=== PATIENT | male | born 1945 | race Caucasian/White ===

== ENCOUNTER → 2018-04-30 | Day surgery (SDC) | payer MEDICARE, OTHER ==
[2018-04-28 16:51] LABS: BASOPHILS % 0.4 % (0.0-1.0); EOSINOPHILS # (AUTO) 0.1 (0.0-0.4); EOSINOPHILS % 0.7 % (0.0-6.0); HEMATOCRIT 40.7 % (38.2-49.6); HEMOGLOBIN 13.5 g/dL (14.0-18.0); LYMPHOCYTES # (AUTO) 1.7 (1.0-3.2); LYMPHOCYTES % 25.1 % (18.0-39.1); MEAN CORPUSCULAR HGB CONC 33.2 g/dL (31-35); MEAN CORPUSCULAR VOLUME 93.6 fL (81-99); MONOCYTES # (AUTO) 0.6 (0.2-0.8); MONOCYTES % 9.3 % (4.4-11.3); NEUTROPHILS # (AUTO) 4.4 (2.1-6.9); NEUTROPHILS % 64.1 % (38.7-80.0); PLATELET COUNT 160 x10e3/uL (140-360); RED BLOOD COUNT 4.35 x10e6/uL (4.3-5.7); RED CELL DISTRIBUTION WIDTH 12.8 % (11.7-14.4)
[2018-04-28 17:09] LABS: BLOOD UREA NITROGEN 14 mg/dL (7-26); BUN/CREATININE RATIO 14 (6-25); CALCIUM 9.7 mg/dL (8.4-10.2); CARBON DIOXIDE 27 mmol/L (22-29); CHLORIDE 108 mmol/L (98-107); EST GLOMERULAR FILTRATION RATE > 60 ML/MIN (60-); GLUCOSE 88 mg/dL (74-118); SODIUM 143 mmol/L (136-145)
--- NOTE | 2018-04-29 07:48 | Diagnostic Imaging Report ---
PROCEDURE:CHEST 2 VIEW COMPARISON:Chest x-ray 06/26/2016. INDICATIONS:PREOP for left foot surgery. FINDINGS: Mild left basilar atelectasis and/or scarring. No pleural effusion or pneumothorax. Cardiomediastinal silhouette is within normal limits. Atherosclerotic calcifications in the aorta. Bony structures are unremarkable. No fractures. No abnormal soft tissue. CONCLUSION: Unremarkable chest x-ray. Dictated by: Huang Campos M.D. on 04/28/2018 at 17:02 Electronically approved by: Huang Campos M.D. on 04/28/2018 at 17:02
[~2018-04-30] MED LIST: AMLODIPINE BESYL5 MG PO; ATORVASTATIN CA40 MG PO; BISOPROLOL FUMAR5 MG PO; BUPIVACAINE HCL 0.5% INJ 30 ML VIAL INJ ONE; CEFAZOLIN SOD 1 GM VIAL ONE; CENTRUM SILVER1 EAC3 PO; CIALIS20 MG PO; DEXAMETHASONE SOD PHOS INJ 4 MG/ML VIAL ONE; DIPHENHYDRAMINE25 M1 PO; EFFIENT10 MG PO; FENTANYL CITRATE/PF 100MCG/2 ML INJ ONE; GLUCOTEN CAPLE1 EACH PO; GLYCOPYRROLATE INJ 1MG/ 5 ML SYR ONE; LIDOCAINE HCL 2% LOCAL INJ 5 ML SDV VIAL INJ ONE; LISINOPRIL-HCT1 EACH PO; LOPERAMIDE2 MG PO; LOVASTATIN20 MG PO; METOPROLOL SUCC50 MG PO; MUPIROCIN 2% OINT 22 GM TUBE ONE; ONDANSETRON HCL INJ 2 MG/ML VIAL ONE; PRILOSEC10 MG PO; PROPOFOL IV EMULSION 10 MG/ML 20 ML VIAL ONE; SEVOFLURANE INHAL SOLN 250 ML PEN BTL ONE; [UNRECOGNIZED DRUG - OTHER] PO
--- OUTSIDE RECORDS SUMMARY | 2018-04-30 05:25 | XMS REPORT ---
Author Author [facility] Address Unknown Phone Unavailable Care Team Providers Care Mobile Home Servicer Name Role Phone Susy WILKINS Unavailable Unavailable Problems This patient has no known problems. Allergies, Adverse Reactions, Alerts This patient has no known allergies or adverse reactions. Medications This patient has no known medications. Results Test Description Test Time Test Comments Text Results Atomic Results Result Comments CHEST 2 VIEWS [place] [id number] [place] [id number] Patient Name: ORALIA ERAZO MR #: [id number] : 1945 Age/Sex: 73/M Req #: [id number] Adm Physician: Ordered by: Susy WILKINS DPM Report #: [id number] Location: OR Room/Bed: Procedure: [id number] DX/CHEST 2 VIEWS Exam Date: 04/28/18 Exam Time: 1630 REPORT STATUS: Signed PROCEDURE: CHEST 2 VIEW COMPARISON: Chest x-ray 06/26/2016. INDICATIONS: PREOP for left foot surgery. FINDINGS: Mild left basilar atelectasis and/or scarring. No pleural effusion or pneumothorax. Cardiomediastinal silhouette is within normal limits. Atherosclerotic calcifications in the aorta. Bony structures are unremarkable. No fractures. No abnormal soft tissue. CONCLUSION: Unremarkable chest x-ray. Dictated by: Oksana Campos M.D. on 04/28/2018 at 17:02 Electronically approved by: Oksana Campos M.D. on 2017 at 17:02 Dictated By: OKSANA CAMPOS MD 01 Transcribed By: VEL on 04/28/181701 COPY TO: Susy WILKINS DPM
--- NOTE | 2018-04-30 07:31 | Operative Report ---
DATE OF PROCEDURE: April 30, 2018 PREOPERATIVE DIAGNOSIS: Left foreign body. POSTOPERATIVE DIAGNOSIS: Left foreign body. PLANNED PROCEDURE: Left excision of foreign body. SURGEON: Dr. Sheri DPM. FUR FINISHER: Jourdan Hdez DPM. ANESTHESIA: General with a postoperative block consisting of 10 mL of 0.5% Marcaine plain. HEMOSTASIS: Pneumatic thigh tourniquet set at 350 mmHg for a total time of approximately 15 minutes. PROCEDURE: The patient was seen and evaluated in the preoperative waiting room. The patient was then brought into the operating room and placed in the supine position. General anesthesia was initiated at this time. A well-padded pneumatic tourniquet was placed about the patient's left thigh. The left foot, ankle and leg was scrubbed, prepped and draped in the usual aseptic manner. The left foot, ankle and leg was exsanguinated with an Esmarch bandage, and the pneumatic thigh tourniquet was inflated to 350 mmHg for a total time of approximately 15 minutes. Attention was directed to the plantar medial aspect of the patient's left foot where a callused area with darker discoloration is noted to the plantar aspect of the 1st metatarsophalangeal joint. Utilizing a #15 blade, a 4 cm linear incision was made directly over this area. It should be noted directly upon incision, a dark foreign body material was noted within the encapsulated hyperkeratosis of the plantar aspect of the 1st metatarsophalangeal joint. This was excised and passed off to the back table. The wound was then explored utilizing a mosquito hemostat medially, laterally, distally, and plantarly, and no metallic or otherwise foreign bodies were noted. The remaining hyperkeratotic encapsulated tissue was excised and passed off to the back table. The wound was then flushed with copious amounts of sterile saline. The skin was reapproximated utilizing simple interrupted sutures with 3-0 nylon. The incision site was then dressed with Adaptic, 4 x 4s, Kerlix, Ezar wrap, and a postop shoe. The patient was transferred to the postoperative recovery unit with vital signs stable and vascular status intact. The patient was monitored there for a short period time before being sent home with the following written and oral instructions: 1. Keep the dressing clean, dry and intact. 2. The patient is to remain nonweightbearing in a postop shoe and to avoid excessive ambulation until being seen in the office. 3. The patient was given the office number and ensured to contact us if any problems should arise. DICTATED By JOURDAN HDEZ DPM Job#: [id number] [place]
== END | disposition home or self-care (01) ==
LOC: OR 05:23
PROVIDERS: ATTEND Podiatrist Foot & Ankle Surgery
DX: M60.272 Foreign body granuloma of soft tissue, not elsewhere classified, left ankle and foot (principal); C61 Malignant neoplasm of prostate; I25.10 Atherosclerotic heart disease of native coronary artery without angina pectoris; I10 Essential (primary) hypertension; K21.9 Gastro-esophageal reflux disease without esophagitis; B15.9 Hepatitis A without hepatic coma; Z88.8 Allergy status to other drugs, medicaments and biological substances; Z01.810 Encounter for preprocedural cardiovascular examination; Z01.812 Encounter for preprocedural laboratory examination; Z01.818 Encounter for other preprocedural examination; Z95.5 Presence of coronary angioplasty implant and graft
CPT/HCPCS: 10120; 36415; 71046; 80048; 85025; 93005; J0690; J1100; J2001; J2405; J3490

== ENCOUNTER → 2021-02-13 | Day surgery (SDC) | payer MEDICARE, OTHER ==
[2021-02-08 12:07] LABS: BASOPHILS % 0.4 % (0.0-1.0); EOSINOPHILS # (AUTO) 0.2 (0.0-0.4); EOSINOPHILS % 3.6 % (0.0-6.0); HEMATOCRIT 42.4 % (38.2-49.6); HEMOGLOBIN 14.1 g/dL (14.0-18.0); LYMPHOCYTES # (AUTO) 1.7 (1.0-3.2); LYMPHOCYTES % 34.4 % (18.0-39.1); MEAN CORPUSCULAR HEMOGLOBIN 30.9 pg (28-32); MEAN CORPUSCULAR HGB CONC 33.3 g/dL (31-35); MONOCYTES # (AUTO) 0.5 (0.2-0.8); MONOCYTES % 10.3 % (4.4-11.3); NEUTROPHILS # (AUTO) 2.6 (2.1-6.9); NEUTROPHILS % 51.1 % (38.7-80.0); PLATELET COUNT 165 x10e3/uL (140-360); RED BLOOD COUNT 4.56 x10e6/uL (4.3-5.7)
[2021-02-08 12:30] LABS: ALANINE AMINOTRANSFERASE 21 IU/L (0-55); ALBUMIN 4.3 g/dL (3.5-5.0); ALBUMIN/GLOBULIN RATIO 1.2 (0.8-2.0); ALKALINE PHOSPHATASE 45 IU/L (40-150); ANION GAP 13.3 mmol/L (8-16); BLOOD UREA NITROGEN 11 mg/dL (7-26); BUN/CREATININE RATIO 10 (6-25); CALCIUM 9.3 mg/dL (8.4-10.2); CARBON DIOXIDE 28 mmol/L (22-29); CHLORIDE 107 mmol/L (98-107); CREATININE, SERUM 1.13 mg/dL (0.72-1.25); EST GLOMERULAR FILTRATION RATE > 60 ML/MIN (60-); GLUCOSE 89 mg/dL (74-118); POTASSIUM 4.3 mmol/L (3.5-5.1); SODIUM 144 mmol/L (136-145)
[2021-02-13] VITALS (12 sets, daily range): BP systolic 98–120; BP diastolic 60–80
[~2021-02-13] VITALS: Ht 175.3 cm; Wt 81.6 kg
[~2021-02-13] MED LIST changes: +ALPRAZOLAM 0.5 MG TAB ONE; +BIVALRIUDIN 250 MG/VIAL VIAL IV ONE; -BUPIVACAINE HCL 0.5% INJ 30 ML VIAL INJ ONE; -CEFAZOLIN SOD 1 GM VIAL ONE; -DEXAMETHASONE SOD PHOS INJ 4 MG/ML VIAL ONE; +DIPHENHYDRAMINE HCL 25 MG CAP ONE; +GABAPENTIN300 MG PO; -GLYCOPYRROLATE INJ 1MG/ 5 ML SYR ONE; +HEPARIN SOD/SOD CHLORIDE 2,000 ML ONE; +IOPAMIDOL 370 MG/ML 200 ML INFUS..BTL INJ ONE; +LIDOCAINE HCL 2% LOCAL 20 ML VIAL ONE; -LIDOCAINE HCL 2% LOCAL INJ 5 ML SDV VIAL INJ ONE; +MIDAZOLAM HCL 2 MG/2 ML VIAL ONE; -MUPIROCIN 2% OINT 22 GM TUBE ONE; -ONDANSETRON HCL INJ 2 MG/ML VIAL ONE; +PRASUGREL 10 MG TAB ONE; -PROPOFOL IV EMULSION 10 MG/ML 20 ML VIAL ONE; -SEVOFLURANE INHAL SOLN 250 ML PEN BTL ONE; +SODIUM CHLORIDE 0.9% 1000ML 1,000 ML ONE; +SODIUM CHLORIDE 0.9% 50ML 50 ML ONE; +VERAPAMIL HCL 2.5 MG/ML 2 ML VIAL ONE
== END | disposition home or self-care (01) ==
LOC: CATH LAB 11:24
PROVIDERS: ATTEND Internal Medicine Interventional Cardiology
DX: I25.118 Atherosclerotic heart disease of native coronary artery with other forms of angina pectoris (principal); R94.39 Abnormal result of other cardiovascular function study; I10 Essential (primary) hypertension; I73.9 Peripheral vascular disease, unspecified; I71.4 Abdominal aortic aneurysm, without rupture; R09.89 Other specified symptoms and signs involving the circulatory and respiratory systems; E78.00 Pure hypercholesterolemia, unspecified; Z88.6 Allergy status to analgesic agent; Z01.812 Encounter for preprocedural laboratory examination; Z20.822 Contact with and (suspected) exposure to COVID-19; Z82.49 Family history of ischemic heart disease and other diseases of the circulatory system
CPT/HCPCS: 93454; C9600; 36415; 76937; 80053; 85025; 92928; 99152; 99153; C1874; C1887; J0583; J2001; J2250; J3010; J7030; Q9967; U0002